=== PATIENT | female | born 1960 | race Caucasian/White ===

== ENCOUNTER 2017-10-22 07:31 | Emergency (ER) | payer BC, OTHER ==
[2017-10-22 08:19] VITALS: BP 118/67
[2017-10-22] MEDS ORDERED: Ketorolac INJ* 60 MG/2 ML VIAL IM ONE (08:35)
--- NOTE | 2017-10-22 08:44 | UC ---
Back Pain HPI - HPI Summary HPI Summary: Pt c/o sudden onset of right lower lateral back pain, that radiates down right posterior leg tp knee. Pt denies injury or any excessive physical activity. Pt reports that she woke with pain this morning. Pt has history of back surgery and previous back pain. - History of Current Complaint Chief Complaint: UCBackPain Stated Complaint: BACK PAIN Time Seen by Provider: 10/22/17 08:07 Hx Obtained From: Patient ?: No Onset/Duration: Sudden Onset, Lasting Hours Timing: Constant Severity Initially: Severe Severity Currently: Severe Pain Intensity: 10 Back Pain: Is Discrete @ - right lower laterl back,, Radiates To - posterior right leg Character: Dull, Aching, Throbbing, Spasmodic Aggravating Factor(s): Movement Alleviating Factor(s): Position Associated Signs And Symptoms: Positive: Weakness, Numbness, Tingling - Risk Factors AAA Risk Factors: Smoking TAD Risk Factors: Smoking Cauda Equina Risk Factors: Negative Epidural Abscess Risk Factors: Negative - Allergies/Home Medications Allergies/Adverse Reactions: Allergies Allergy/AdvReac Type Severity Reaction Status Date / Time No Known Allergies Allergy Verified 10/22/17 08:08 PMH/Surg Hx/FS Hx/Imm Hx Previously Healthy: Yes Other History Of: Negative For: HIV, Hepatitis B, Hepatitis C, Anticoagulant Therapy - Surgical History Surgical History: Yes Surgery Procedure, Year, and Place: BACK. TUBAL. HYSTERECTOMY. T&A - Family History Known Family History: Positive: Cardiac Disease, Hypertension, Diabetes - Social History Occupation: Employed Full-time Lives: With Family Alcohol Use: None Substance Use Type: None Smoking Status (MU): Heavy Every Day Tobacco Smoker Type: Cigarettes Amount Used/How Often: 1 PPD Length of Time of Smoking/Using Tobacco: 44 YRS Have You Smoked in the Last Year: Yes Household Exposure Type: Cigarettes Review of Systems Constitutional: Negative Skin: Negative Eyes: Negative ENT: Negative Respiratory: Negative Cardiovascular: Negative Gastrointestinal: Negative Genitourinary: Negative Motor: Decreased ROM - low back Neurovascular: Negative Musculoskeletal: Arthralgia, Myalgia Neurological: Negative Psychological: Negative Is Patient Immunocompromised?: No All Other Systems Reviewed And Are Negative: Yes Physical Exam Triage Information Reviewed: Yes Vital Signs: Initial Vital Signs Temp 98 F 10/22/17 08:10 Pulse 104 10/22/17 08:10 Resp 20 10/22/17 08:10 BP 118/67 10/22/17 08:10 Pulse Ox 95 10/22/17 08:10 Eye Exam: Normal ENT Exam: Normal Neck exam: Normal Respiratory Exam: Normal Respiratory: Positive: No respiratory distress Musculoskeletal Exam: Other Musculoskeletal: Positive: ROM Limited @ - low back Neurological Exam: Normal Psychological Exam: Normal Skin Exam: Normal Back Pain Course/Dx - Differential Dx/Diagnosis Differential Diagnosis/HQI/PQRI: Herniated Disc Provider Diagnoses: sciatica Discharge - Sign-Out/Discharge Documenting (check all that apply): Discharge - Discharge Plan Condition: Stable Disposition: HOME Prescriptions: Cyclobenzaprine TAB* [Flexeril 10 MG TAB*] 10 mg PO TID PRN #30 tab PRN Reason: Pain Naproxen TAB* [Naprosyn 375 mg TAB*] 375 mg PO Q12H PRN #30 tab PRN Reason: Pain predniSONE TAB* [Deltasone TAB*] 30 mg PO DAILY #12 tab Patient Education Materials: Sciatica (ED), Lower Back Exercises (ED) Forms: *Work Release Referrals: [facility] [Outside] No Primary Care Phys,NOPCP [Primary Care Provider] - Additional Instructions: Please follow up with a PCP or return to clinic as needed. If symptoms do not improve or they worsen, please seek care at the closest emergency room immediately. - Billing Disposition and Condition Condition: STABLE Disposition: HOME
== END 2017-10-22 09:15 | disposition home or self-care (01) ==
LOC: UCCORT 07:31
DX: M54.31 Sciatica, right side (principal); F17.210 Nicotine dependence, cigarettes, uncomplicated
CPT/HCPCS: 96372; 99212; G0463; J1885

== ENCOUNTER 2018-05-06 13:15 | Emergency (ER) | payer OTHER ==
[2018-05-06 14:32] VITALS: BP 110/68
--- NOTE | 2018-05-06 15:03 | ED ---
Respiratory - HPI Summary HPI Summary: 58 yr old female with the complaint of runny nose, coughing, post nasal drip, left ear itching, some discomfort in lower ribs bilateral with coughing spells. She is a smoker. She denies SOB. - History of Current Complaint Chief Complaint: UCRespiratory Stated Complaint: COUGH,CONGESTION Time Seen by Provider: 05/06/18 14:46 Pain Intensity: 8 - Allergy/Home Medications Allergies/Adverse Reactions: Allergies Allergy/AdvReac Type Severity Reaction Status Date / Time No Known Allergies Allergy Verified 05/06/18 14:32 Home Medications: Home Medications guaiFENesin ER TAB [Mucinex*] 600 mg PO BID 05/06/18 [History Confirmed 05/06/18 ] metFORMIN* [Glucophage 500 MG TAB *] 500 mg PO BID 05/06/18 [History Confirmed 05/06/18] PMH/Surg Hx/FS Hx/Imm Hx Endocrine/Hematology History: Reports: Hx Diabetes - She states that she is not on any diabetic medications. She lost weight. Denies: Hx Anticoagulant Therapy, Hx Thyroid Disease Cardiovascular History: Denies: Hx Congestive Heart Failure, Hx Deep Vein Thrombosis, Hx Hypertension , Hx Myocardial Infarction, Hx Pacemaker/ICD Respiratory History: Denies: Hx Asthma, Hx Chronic Obstructive Pulmonary Disease (COPD), Hx Lung Cancer, Hx Pneumonia, Hx Pulmonary Embolism GI History: Denies: Hx Gall Bladder Disease, Hx Gastrointestinal Bleed, Hx Ulcer, Hx Urosepsis History: Denies: Hx Kidney Stones, Hx Renal Disease Neurological History: Denies: Hx Dementia, Hx Migraine, Hx Seizures, Hx Transient Ischemic Attacks (TIA) Psychiatric History: Reports: Hx Anxiety - Not on medications at this time. She denies any active disease., Hx Depression Denies: Hx Schizophrenia, Hx Bipolar Disorder - Surgical History Surgery Procedure, Year, and Place: BACK. TUBAL. HYSTERECTOMY. T&A Infectious Disease History: No Infectious Disease History: Denies: Traveled Outside the [place] in Last 30 Days - Family History Known Family History: Positive: Cardiac Disease, Hypertension, Diabetes - Social History Alcohol Use: None Substance Use Type: Reports: None Smoking Status (MU): Heavy Every Day Tobacco Smoker Type: Cigarettes Amount Used/How Often: 1 PPD Length of Time of Smoking/Using Tobacco: 44 YRS Have You Smoked in the Last Year: Yes Review of Systems Constitutional: Negative Positive: Sore Throat, Ear Ache, Nasal Discharge Positive: Cough All Other Systems Reviewed And Are Negative: Yes Physical Exam Triage Information Reviewed: Yes Vital Signs On Initial Exam: Initial Vitals Temp Pulse Resp BP Pulse Ox 98.8 F 100 16 110/68 96 05/06/18 14:25 05/06/18 14:25 05/06/18 14:25 05/06/18 14:25 05/06/18 14:25 Vital Signs Reviewed: Yes Appearance: Positive: Well-Appearing, No Pain Distress Skin: Positive: Warm, Skin Color Reflects Adequate Perfusion Head/Face: Positive: Normal Head/Face Inspection Eyes: Positive: EOMI ENT: Positive: Pharyngeal erythema, Nasal congestion, Nasal drainage, TM red - left, Sinus tenderness Neck: Positive: Nontender Respiratory/Lung Sounds: Positive: Clear to Auscultation, Breath Sounds Present Cardiovascular: Positive: RRR. Negative: Murmur Abdomen Description: Positive: Nontender Musculoskeletal: Positive: Strength/ROM Intact Neurological: Positive: Sensory/Motor Intact, Alert, Oriented to Person Place, Time, CN Intact II-III Psychiatric: Positive: Normal - Mariah Coma Scale Best Eye Response: 4 - Spontaneous Best Motor Response: 6 - Obeys Commands Best Verbal Response: 5 - Oriented Coma Scale Total: 15 Diagnostics - Vital Signs Vital Signs Temp Pulse Resp BP Pulse Ox 05/06/18 14:25 98.8 F 100 16 110/68 96 - Laboratory Lab Statement: Any lab studies that have been ordered have been reviewed, and results considered in the medical decision making process. Disposition - Course Course Of Treatment: 58 yr old with sinusitis, and otitis media. Rx with biaxin and also cough rx with tessalon and mdi. - Diagnoses Provider Diagnoses: Sinusitis, Otitis media Discharge - Sign-Out/Discharge Documenting (check all that apply): Patient Departure All imaging exams completed and their final reports reviewed: No Studies - Discharge Plan Condition: Good Disposition: HOME Prescriptions: Albuterol HFA INHALER* [Ventolin HFA Inhaler*] 1 - 2 puff INH Q6H PRN #1 mdi PRN Reason: Cough Benzonatate CAP* [Tessalon 100 MG CAP*] 100 mg PO TID PRN #14 cap PRN Reason: Cough Clarithromycin TAB* [Biaxin 500 MG TAB*] 500 mg PO BID #20 tab Patient Education Materials: Sinusitis (ED), Ear Infection (ED) Referrals: Jesi Dimas [Primary Care Provider] - 2 Days - Billing Disposition and Condition Condition: GOOD Disposition: Home
== END 2018-05-06 15:13 | disposition home or self-care (01) ==
LOC: UCCORT 13:15
DX: J32.9 Chronic sinusitis, unspecified (principal); H66.92 Otitis media, unspecified, left ear; E11.9 Type 2 diabetes mellitus without complications; Z87.891 Personal history of nicotine dependence
CPT/HCPCS: 99212; G0463

== ENCOUNTER 2019-04-28 13:18 | Emergency (ER) | payer OTHER ==
[2019-04-28 13:45] VITALS: BP 116/55
[2019-04-28] MEDS ORDERED: Tetan/Diph/Pertus SYR(Tdap)* 0.5 ML SYR(BOOSTRIX) use SYR contains LATEX IM ONE (14:32)
--- NOTE | 2019-04-28 14:51 | UC ---
Upper Extremity HPI - History of Current Complaint Chief Complaint: UCLaceration Stated Complaint: WC-LEFT THUMB INJURY Time Seen by Provider: 04/28/19 14:32 Hx Obtained From: Patient ?: No Onset/Duration: Sudden Onset, Lasting Hours Severity Currently: None Pain Intensity: 0 Pain Scale Used: 0-10 Numeric Location Of Pain: Is Discrete @ - left thumb lac Aggravating Factor(s): Nothing Alleviating Factor(s): Nothing Associated Signs And Symptoms: Positive: Negative - Allergies/Home Medications Allergies/Adverse Reactions: Allergies Allergy/AdvReac Type Severity Reaction Status Date / Time No Known Allergies Allergy Verified 04/28/19 13:46 Home Medications: Home Medications Losartan Potassium 25 mg PO QPM 04/28/19 [History Confirmed 04/28/19] PMH/Surg Hx/FS Hx/Imm Hx Previously Healthy: Yes Other History Of: Negative For: HIV, Hepatitis B, Hepatitis C, Anticoagulant Therapy - Surgical History Surgical History: Unable to Obtain/Confirm Surgery Procedure, Year, and Place: BACK. TUBAL. HYSTERECTOMY. T&A - Family History Known Family History: Positive: Cardiac Disease, Hypertension, Diabetes, Non- Contributory - Social History Alcohol Use: None Substance Use Type: None Smoking Status (MU): Heavy Every Day Tobacco Smoker Type: Cigarettes Amount Used/How Often: 1 PPD Length of Time of Smoking/Using Tobacco: 44 YRS Have You Smoked in the Last Year: Yes Household Exposure Type: Cigarettes Review of Systems All Other Systems Reviewed And Are Negative: Yes Constitutional: Negative: Fever, Chills, Fatigue Skin: Positive: Other - laceration left thumb, not bleeding Motor: Positive: Negative Neurovascular: Positive: Negative Musculoskeletal: Positive: Negative Is Patient Immunocompromised?: No Physical Exam Triage Information Reviewed: Yes Appearance: Well-Appearing, No Pain Distress, Well-Nourished Vital Signs: Initial Vital Signs Temp 98.4 F 04/28/19 13:40 Pulse 99 04/28/19 13:40 Resp 18 04/28/19 13:40 BP 116/55 04/28/19 13:40 Pulse Ox 96 04/28/19 13:40 Vital Signs Reviewed: Yes Eyes: Positive: Conjunctiva Clear Musculoskeletal Exam: Normal Musculoskeletal: Positive: Strength Intact, ROM Intact, No Edema, Other: - small 2mm laceration, non-bleeding, on left thumb, non-tender, no FB palpated. cleaned. full ROM of IP, MCP of thumb, SITLT. Neurological Exam: Normal Neurological: Positive: Alert Psychological Exam: Normal Skin: Positive: Other - small 2mm laceration, non-bleeding, on left thumb, non- tender, no FB palpated. cleaned. full ROM of IP, MCP of thumb, SITLT. Upper Extremity Course/Dx - Course Course Of Treatment: Punture wound, left thumb - No repair needed - Discussed PEP-- patient refused due to low likelihood of transmission, however if she changes her mind, she should be offered prophylaxis. Workers Comp injury - Education given on Prophylaxis against HIV- very unlikley for exposure and infection based on history. IF you would like to have prophylaxis, please call back and medication can be given to you. Infectious disease phone number given. Medication most effective within 72 hours of incident - TIters drawn to see if you are immune to hepatitis B. - Tetanus booster given. - Keep area clean/ dry intact. - Follow up with primary physician within 2-3 days for blood work results, discuss wound - Differential Dx/Diagnosis Differential Diagnosis/HQI/PQRI: Bursitis, Laceration, Strain, Sprain Provider Diagnosis: Puncture wound Discharge ED - Sign-Out/Discharge Documenting (check all that apply): Patient Departure All imaging exams completed and their final reports reviewed: No Studies - Discharge Plan Condition: Good Disposition: HOME Patient Education Materials: Puncture Wound (ED) Referrals: Jesi Dimas [Primary Care Provider] - Adán CASEY,Gurwinder Stevenson [Medical Doctor] - 3 Days (Follow up within 3 days for prophylatic medication ) Additional Instructions: - Education given on Prophylaxis against HIV- very unlikley for exposure and infection based on history. IF you would like to have prophylaxis, please call back and medication can be given to you. Infectious disease phone number given. Medication most effective within 72 hours of incident - TIters drawn to see if you are immune to hepatitis B. - Tetanus booster given. - Keep area clean/ dry intact. - FOllow up with primary physician within 2-3 days for blood work results, discuss wound - Billing Disposition and Condition Condition: GOOD Disposition: Home
[2019-04-28 19:45] LABS: Hepatitis B Surface Antigen Nonreactive (Nonreactive)
[2019-04-28 19:59] LABS: HIV 4th Generation Nonreactive (Nonreactive)
[2019-04-28 20:02] LABS: Hepatitis B Surface Ab Not Immune (Immune); Hepatitis C Antibody Negative (Negative)
== END 2019-04-28 15:05 | disposition home or self-care (01) ==
LOC: UCCORT 13:18
DX: S61.032A Puncture wound without foreign body of left thumb without damage to nail, initial encounter (principal); F17.210 Nicotine dependence, cigarettes, uncomplicated; Z23 Encounter for immunization; X58.XXXA Exposure to other specified factors, initial encounter; Y92.9 Unspecified place or not applicable
CPT/HCPCS: 36415; 86706; 86803; 87340; 87389; 90715; 99212; G0463

== ENCOUNTER 2019-08-24 10:55 | Emergency (ER) | payer OTHER ==
[2019-08-24 11:58] VITALS: BP 122/73
== END 2019-08-24 13:45 | disposition left against medical advice (07) ==
LOC: UCCORT 10:55
DX: Z53.21 Procedure and treatment not carried out due to patient leaving prior to being seen by health care provider (principal)